=== PATIENT | male | born 1965 | race American Indian/Alaskan Native ===

== ENCOUNTER 2021-03-18 22:18 | Emergency (ER) | payer MEDICAID ==
--- NOTE | 2021-03-19 03:27 | Emergency Department Report ---
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 He has cough. EMS obtained history from caregiver who desired transport to the emergency department for chest x-ray to rule out pneumonia. Patient is nonverbal at baseline. According to recent history and physical patient had previous CVA 5 years ago, he has dysphagia status post G-tube he has bedbound. According to documentation provided from recent [place] visit, Persistent cough in spite antibiotics. [place] home nurse home test COVID 19 rapid test 3 days. Sister is also positive. medications include Eliquis atorvastatin Baclofen Cyclobenzaprine Famotidine Glycopyrrolate Keppra Zofran Promethazine Sucralfate Tramadol -: Gradual, days(s) (Several days earlier) Consistency: intermittent Improves with: none Worsens with: none Treatments Prior to Arrival: other (EMS transport) ED Review of Systems ROS: Stated complaint: COVID SYMPTOMS COUGH FEVER VOMITING Other details as noted in HPI Comment: Unobtainable due to pts medical conditions (Aphasia) ED Past Medical Hx - Past Medical History Previous Medical History?: Yes Hx CVA: Yes (Bedbound with aphasia, dysphagia) - Surgical History Past Surgical History?: Yes Additional Surgical History: g tube - Social History Smoking Status: Former Smoker Substance Use Type: None ED Physical Exam - General Limitations: No Limitations General appearance: alert, in no apparent distress, other (Will make contact, has purposeful movement) - Head Head exam: Present: atraumatic, normocephalic - Eye Eye exam: Present: normal appearance - ENT ENT exam: Present: mucous membranes moist - Neck Neck exam: Present: normal inspection, full ROM - Respiratory Respiratory exam: Present: normal lung sounds bilaterally. Absent: respiratory distress, wheezes, rales, rhonchi - Cardiovascular Cardiovascular Exam: Present: regular rate, normal rhythm, normal heart sounds. Absent: systolic murmur, diastolic murmur, rubs, gallop - GI/Abdominal GI/Abdominal exam: Present: soft, normal bowel sounds. Absent: distended, tenderness, guarding, rebound - Rectal Rectal exam: Present: deferred - Neurological Exam Neurological exam: Present: alert - Psychiatric Psychiatric exam: Present: normal mood, flat affect - Skin Skin exam: Present: warm, dry, intact, normal color. Absent: rash ED Medical Decision Making - Medical Decision Making Recent COVID-19 infection, normal vital signs, without pneumonia. I spoke extensively with caregiver phone #[phone]. She recommended admission for IV hydration and IV antibiotics. I gave very extensive explanation why this is not indicated at this time. Patient is stable. Patient does not have pneumonia. Patient does not have hypoxia. He has not coughed or vomited during his 6-hour stay in the emergency department. She was quite upset and insisted on having my name and title. She did agree to have the patient accepted at home by medical transport. Clinical impression: COVID-19 infection with mild symptoms no evidence of cough or emesis in the emergency department during 6-hour observation. Critical care attestation.: If time is entered above; I have spent that time in minutes in the direct care of this critically ill patient, excluding procedure time. ED Disposition Clinical Impression: COVID-19 Disposition: 01 HOME / SELF CARE / HOMELESS Is pt being admited?: No Does the pt Need Aspirin: No Condition: Stable Instructions: COVID-19 Referrals: PRIMARY CARE, [Primary Care Provider] - 3-5 Days
--- NOTE | 2021-03-19 03:43 | XRay Report ---
CHEST 1 VIEW INDICATION: COVID. COMPARISON: None FINDINGS: SUPPORT DEVICES: None. HEART: Within normal limits. LUNGS/PLEURA: No acute air space or interstitial disease. ADDITIONAL FINDINGS: None. IMPRESSION: 1. No acute findings. Signer Name: Jarrod Torres MD Signed: 03/19/2021 3:39 AM Workstation Name: [id number]
[2021-03-19 07:27] VITALS: BP 133/96
== END 2021-03-19 07:27 | disposition home or self-care (01) ==
LOC: ED 22:18
DX: U07.1 COVID-19 (principal); Z87.891 Personal history of nicotine dependence
CPT/HCPCS: 71045; 99283